=== PATIENT | male | born 1965 | race American Indian/Alaskan Native ===

== ENCOUNTER 2017-11-16 19:46 | Inpatient (IN) | payer MEDICAID, OTHER ==
[2017-11-16] MEDS ORDERED: Albuterol-Ipratrop 3 mg / 0.5 (3 ml) UD ONE (20:05)
[2017-11-16] MEDS ORDERED: Albuterol-Ipratrop 3 mg / 0.5 (3 ml) UD IH STA ×2 (20:09→21:08)
[2017-11-16 20:27] LABS: HEMOGLOBIN 14.4 g/dL (14.0-18.0); MEAN CELL VOLUME 99.1 fl (80.0-105.0); MEAN CORPUSCULAR HEMOGLOBIN 33.4 pg (25.0-35.0); MEAN CORPUSCULAR HGB CONC 33.7 g/dl (31.0-37.0); MEAN PLATELET VOLUME 10.6 fl (7.0-11.0); RBC 4.31 10^6/uL (3.5-6.1); RED CELL DISTRIBUTION WIDTH 11.9 % (11.5-14.5); WHITE BLOOD COUNT 5.8 10^3/ul (4.5-11.0)
[2017-11-16 20:28] LABS: ALB/GLOB RATIO 1.2 (1.1-1.8); ALBUMIN 4.3 g/dL (3.0-4.8); ALT/SGPT 46 U/L (7-56); AST/SGOT 48 U/L (17-59); BLOOD UREA NITROGEN 20 mg/dL (7-21); GFR AFRICAN-AMERICAN > 60; GFR NON-AFRICAN AMERICAN > 60
--- NOTE | 2017-11-16 20:35 | ED PDOC ---
Arrival/HPI - General Chief Complaint: Shortness Of Breath Time Seen by Provider: 11/16/17 19:49 Historian: Patient - History of Present Illness Narrative History of Present Illness (Text): 11/16/17 19:55 A 52 year old male, whose past medical history includes emphysema and neck tumor , is brought in by EMS for evaluation of shortness of breath for past couple of days. Patient received nebulizer of SOLU-Medrol prior to arrival. Patient states feeling better but still short of breath with wheezing. Patient notes also experiencing occassional minimally productive cough whitish sputum, but denies any fever, chills, chest pain, back pain, or any other complaints at this time. No PMD Past Medical History - Provider Review Nursing Documentation Reviewed: Yes - Infectious Disease Hx of Infectious Diseases: None Family/Social History - Physician Review Nursing Documentation Reviewed: Yes Family/Social History: No Known Family HX Allergies/Home Meds Allergies/Adverse Reactions: Allergies No Known Allergies Allergy (Verified 11/16/17 19:55) Home Medications: Home Meds Medication Instructions Recorded Confirmed Albuterol Sulfate [Ventolin Hfa] 1 - 2 puff IH PRN PRN 11/16/17 11/16/17 Albuterol/Ipratropium [Combivent 1 puff IH PRN PRN 11/16/17 11/16/17 Respimat] Review of Systems - Physician Review All systems were reviewed & negative as marked: Yes - Review of Systems Constitutional: absent: Fevers, Night Sweats Respiratory: SOB Cardiovascular: absent: Chest Pain Musculoskeletal: absent: Back Pain Physical Exam Vital Signs Reviewed: Yes Vital Signs Temp Pulse Resp BP Pulse Ox 11/16/17 23:00 94 H 18 127/72 99 11/16/17 21:47 98 H 15 113/68 98 11/16/17 19:55 22 100 11/16/17 19:50 98.1 F 111 H 21 163/100 H 100 Temperature: Afebrile Blood Pressure: Hypertensive Pulse: Regular Respiratory Rate: Normal Appearance: Positive for: Well-Appearing Pain Distress: None Mental Status: Positive for: Alert and Oriented X 3 - Systems Exam Pupils: Present: PERRL Extroacular Muscles: Present: EOMI Conjunctiva: Present: Normal Ears: Present: Normal Respiratory/Chest: Present: Respiratory Distress (mild), Wheezes (bilateral expiratory wheezing) Cardiovascular: Present: Regular Rate and Rhythm, Normal S1, S2. No: Murmurs Abdomen: No: Tenderness, Distention, Peritoneal Signs Upper Extremity: Present: Normal Inspection, Deformity (right upper arm in clivula region (chronic)). No: Cyanosis, Edema Lower Extremity: Present: Normal Inspection. No: Edema Neurological: Present: GCS=15, CN II-XII Intact, Speech Normal. No: Other (no focal deficits) Psychiatric: Present: Alert, Oriented x 3, Normal Insight, Normal Concentration Medical Decision Making ED Course and Treatment: 11/16/17 20:00 Impression: 52 year old male with shortness of breath. Plan: -- EKG -- Chest X-Ray -- Labs -- Duoneb Progress Notes: 11/16/17 21:30 Chest X-ray reviewed, shows hyperinflated lungs, chronic interstitial changes. 11/16/17 22:05 EKG: Ordered, reviewed, and independently interpreted the EKG. Rate : 108 BPM Rhythm :Sinus tachycardia. Interpretation : Non-specific ST/T wave changes. 11/16/17 22:29 Discussed case with medical assistant cardiology and hospitalist, who are aware and agree with admission to Telemetry under hospitalist's service. - Lab Interpretations Lab Results: 11/16/17 20:00 11/16/17 20:00 Lab Results 11/16/17 20:00: WBC 5.8, RBC 4.31, Hgb 14.4, Hct 42.7, MCV 99.1, MCH 33.4, MCHC 33.7, RDW 11.9, Plt Count 189, MPV 10.6 11/16/17 20:00: Sodium 142, Potassium 3.9, Chloride 97 L, Carbon Dioxide 34 H, Anion Gap 15, BUN 20, Creatinine 0.9, Est GFR ( Amer) > 60, Est GFR (Non- Af Amer) > 60, Random Glucose 123 H, Calcium 9.0, Total Bilirubin 0.8, AST 48, ALT 46, Alkaline Phosphatase 72, Lactate Dehydrogenase 561, Total Creatine Kinase 643 H, CK-MB (CK-2) 6.5 H, CK-MB (CK-2) % 1.0 L, Troponin I 0.04, NT-Pro- B Natriuret Pep 120, Total Protein 8.0, Albumin 4.3, Globulin 3.6, Albumin/ Globulin Ratio 1.2 11/16/17 20:00: PT 13.6 H, INR 1.19 H, APTT 29.4 - RAD Interpretation Radiology Orders: 11/16/17 20:10 CHEST PORTABLE [RAD] Stat Quill Layer: Radiologist - EKG Interpretation Interpreted by ED Physician: Yes Type: 12 lead EKG - Medication Orders Current Medication Orders: Albuterol/Ipratropium (Duoneb 3 Mg/0.5 Mg (3 Ml) Ud) 3 ml IH [id number] [facility] Last Admin: 11/17/17 05:17 Dose: 3 ml Albuterol/Ipratropium (Duoneb 3 Mg/0.5 Mg (3 Ml) Ud) 3 ml IH Q2H PRN PRN Reason: Shortness of Breath Enoxaparin Sodium (Lovenox) 40 mg SC DAILY [facility] PRN Reason: Protocol Sodium Chloride (Sodium Chloride 0.9%) 1,000 mls @ 100 mls/hr IV .Q10H [facility] Last Admin: 11/17/17 00:08 Dose: 100 mls/hr eMAR Start Stop Document 11/17/17 00:08 SUJATHA (Rec: 11/17/17 00:08 SUJATHA [id number]) Intravenous Solution Start Date 11/17/17 Start Time 00:08 Ceftriaxone Sodium (Rocephin 1 Gram Ivpb) 1 gm in 100 mls @ 100 mls/hr IVPB DAILY [facility] PRN Reason: Protocol Azithromycin (Zithromax 500mg In Ns) 500 mg in 250 mls @ 167 mls/hr IVPB 0600 [facility] Methylprednisolone (Solu-Medrol) 30 mg IVP Q12 [facility] Last Admin: 11/17/17 00:00 Dose: Pantoprazole Sodium (Protonix Ec Tab) 40 mg PO 0600 [facility] Discontinued Medications Albuterol/Ipratropium (Duoneb 3 Mg/0.5 Mg (3 Ml) Ud) 3 ml IH ONCE STA Stop: 11/16/17 20:10 Last Admin: 11/16/17 20:10 Dose: 3 ml Albuterol/Ipratropium (Duoneb 3 Mg/0.5 Mg (3 Ml) Ud) 3 ml IH ONCE STA Stop: 11/16/17 21:09 - Scribe Statement The provider has reviewed the documentation as recorded by the Bryan Dalal Provider Dayneibe Attestation: All medical record entries made by the Bryan were at my direction and personally dictated by me. I have reviewed the chart and agree that the record accurately reflects my personal performance of the history, physical exam, medical decision making, and the department course for this patient. I have also personally directed, reviewed, and agree with the discharge instructions and disposition. Disposition/Present on Arrival - Present on Arrival Any Indicators Present on Arrival: No History of DVT/PE: No History of Uncontrolled Diabetes: No Urinary Catheter: No History of Decub. Ulcer: No History Surgical Site Infection Following: None - Disposition Have Diagnosis and Disposition been Completed?: Yes Diagnosis: COPD exacerbation Disposition: HOSPITALIZED Disposition Time: 22:26 Patient Problems: Current Active Problems Problem Status Onset COPD exacerbation Acute Condition: STABLE
[2017-11-16 20:40] LABS: B-TYPE NATRIURETIC PEPTIDE 120 pg/mL (0-450); TROPONIN I 0.04 ng/mL
[2017-11-16 20:56] LABS: CK-MB 6.5 ng/mL (0.0-3.6)
[2017-11-16 21:05] LABS: INR 1.19 (0.93-1.08); PROTHROMBIN TIME 13.6 SECONDS (9.4-12.5)
[2017-11-16 21:06] LABS: PARTIAL THROMBOPLASTIN TIME 29.4 Seconds (25.1-36.5)
[2017-11-16] MEDS ORDERED: Albuterol-Ipratrop 3 mg / 0.5 (3 ml) UD IH PRN (23:11)
[2017-11-17] MEDS: Sodium Chloride 0.9% 1,000 ML IV SCH ×2 (00:08→12:38)
[2017-11-17 04:36] LABS: GRAN # 4.67 (1.4-6.5); HEMOGLOBIN 13.3 g/dL (14.0-18.0); LYMPH # 0.3 (1.2-3.4); LYMPH % 5.2 % (22.0-35.0); MEAN CELL VOLUME 99.5 fl (80.0-105.0); MEAN CORPUSCULAR HEMOGLOBIN 32.1 pg (25.0-35.0); MEAN CORPUSCULAR HGB CONC 32.3 g/dl (31.0-37.0); MEAN PLATELET VOLUME 10.7 fl (7.0-11.0); MONO % 0.8 % (1.0-6.0); PLATELET COUNT 168 10^3/uL (120.0-450.0); RBC 4.14 10^6/uL (3.5-6.1)
--- NOTE | 2017-11-17 04:36 | CP.PCM.HP ---
<Maxx Chavira - Last Filed: 11/17/17 04:27> History of Present Illness - History of Present Illness History of Present Illness: Medicine H&P: Dr. Patricio Chief Complaint: Shortness of Breath HPI 52 year old black male with past medical history of emphysema and neck tumor presents with shortness of breath that is progressively getting worse for a week. Patient states that he felt cold-like symptoms with productive cough ( white sputum) before the onset of this shortness of breath. Patient has had several exacerbations like this in the past. Review of Systems: 12 point ROS obtained and negative except as per HPI Surgical History: Patient has a skin graft on R upper extremity Medical History: Emphysema, Neck Tumor Allergies: NKDA Social History: 1/2 pack per day smoker; Social alcohol; Denies illicits. Works two jobs, with two kids Home Meds: Reviewed, as per MAR Family History: Non-contributory PMD: None Present on Admission - Present on Admission Any Indicators Present on Admission: No Past Patient History - Infectious Disease Hx of Infectious Diseases: None - Past Social History Smoking Status: Heavy Smoker > 10 Cigarettes Daily - CARDIAC Hx Cardiac Disorders: No - PULMONARY Hx Respiratory Disorders: Yes Hx Asthma: Yes Hx Emphysema: Yes - NEUROLOGICAL Hx Neurological Disorder: No - HEENT Hx HEENT Problems: No - RENAL Hx Chronic Kidney Disease: No - ENDOCRINE/METABOLIC Hx Endocrine Disorders: No - HEMATOLOGICAL/ONCOLOGICAL Hx Blood Disorders: Yes Hx Cancer: Yes Other/Comment: tumor removed rt neck no chemo/radiation - INTEGUMENTARY Hx Dermatological Problems: No - MUSCULOSKELETAL/RHEUMATOLOGICAL Hx Musculoskeletal Disorders: No - GASTROINTESTINAL Hx Gastrointestinal Disorders: No - GENITOURINARY/GYNECOLOGICAL Hx Genitourinary Disorders: No - PSYCHIATRIC Hx Psychophysiologic Disorder: No Hx Substance Use: No - SURGICAL HISTORY Hx Surgeries: Yes Other/Comment: tumor removed rt neck - ANESTHESIA Hx Anesthesia: Yes Hx Anesthesia Reactions: No Meds Allergies/Adverse Reactions: Allergies Allergy/AdvReac Type Severity Reaction Status Date / Time No Known Allergies Allergy Verified 11/16/17 19:55 Physical Exam - Constitutional Appears: Well - Head Exam Head Exam: ATRAUMATIC, NORMAL INSPECTION, NORMOCEPHALIC - Eye Exam Eye Exam: EOMI, Normal appearance, PERRL Pupil Exam: NORMAL ACCOMODATION, PERRL - ENT Exam ENT Exam: Mucous Membranes Moist, Normal Exam - Neck Exam Neck exam: Positive for: Normal Inspection - Respiratory Exam Respiratory Exam: Wheezes, NORMAL BREATHING PATTERN - Cardiovascular Exam Cardiovascular Exam: REGULAR RHYTHM - GI/Abdominal Exam GI & Abdominal Exam: Normal Bowel Sounds, Soft. 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 - Extremities Exam Extremities exam: Negative for: normal inspection (Right upper extremity has large flapping skin graft) - Back Exam Back exam: NORMAL INSPECTION - Neurological Exam Neurological exam: Alert, CN II-XII Intact, Normal Gait, Oriented x3, Reflexes Normal - Psychiatric Exam Psychiatric exam: Normal Affect, Normal Mood - Skin Skin Exam: Dry, Intact, Normal Color, Warm - Additional Findings Additional findings: Patient has what appear to be neurofibromas and cafe au lait spots on his torso and extremities Results - Vital Signs Recent Vital Signs: Last Vital Signs Temp 98.1 F 11/16/17 19:50 Pulse 94 H 11/16/17 23:00 Resp 18 11/16/17 23:00 BP 127/72 11/16/17 23:00 Pulse Ox 99 11/16/17 23:00 - Labs Result Diagrams: 11/16/17 20:00 11/16/17 20:00 Labs: Laboratory Results - last 24 hr 11/16/17 11/16/17 11/17/17 23:15 23:15 01:00 D-Dimer, Quantitative < 200 Phosphorus 5.7 H Magnesium 2.0 Troponin I Triglycerides 68 Cholesterol 206 H LDL Cholesterol Direct 127 HDL Cholesterol 48 TSH 3rd Generation 1.69 11/17/17 02:15 D-Dimer, Quantitative Phosphorus Magnesium Troponin I 0.03 D Triglycerides Cholesterol LDL Cholesterol Direct HDL Cholesterol TSH 3rd Generation Assessment & Plan - Assessment and Plan (Free Text) Assessment: 52 year old male with pertinent medical history of emphysema presents with COPD exacerbation. Laboratory results revealed no white count, but patient was tachycardic and tachypneic on admission; no infiltrates on chest XR. D-dimer negative. At this time, suspicion for infection and PE low. Patient also found to have indeterminate troponin with elevated CK-MB and EKG with ST/T changes, but denies chest pain. Physical exam reveals several lesions that appear to be neurofibromas and cafe au-lait spots. Plan: Indeterminate Troponin Elevation - Admit to telemetry - Serial troponins, EKG; TSH, A1C, Lipid Panel - Heart Healthy Diet Shortness of Breath, likely 2/2 COPD Exacerbation - Rapid Flu, Blood cultures, Sputum cultures - Duonebs [facility] and PRN; Solumederol; O2 NC PRN - Empiric antibiotic treatment with Rocephin and Azithro - NS @ 100 mls/hr Possible Neurofibromatosis - Follow up with neurology outpatient GI/DVT Prophylaxis - Lovenox, Protonix <Martinez Patricio MD - Last Filed: 11/18/17 13:34> Results - Vital Signs Recent Vital Signs: Last Vital Signs Temp 98.5 F 11/18/17 12:00 Pulse 81 11/18/17 12:00 Resp 20 11/18/17 12:00 BP 180/97 H 11/18/17 12:00 Pulse Ox 100 11/18/17 06:00 - Labs Result Diagrams: 11/18/17 07:00 11/18/17 07:00 Labs: Laboratory Results - last 24 hr 11/17/17 11/17/17 11/18/17 13:55 13:55 07:00 WBC 8.2 D RBC 4.06 Hgb 13.1 L Hct 39.9 L MCV 98.3 MCH 32.3 MCHC 32.8 RDW 11.9 Plt Count 178 MPV 10.8 Gran % 81.7 H Lymph % (Auto) 12.0 L [place] % (Auto) 6.1 H Eos % (Auto) 0.2 L Baso % (Auto) 0.0 Gran # 6.67 H Lymph # (Auto) 1.0 L [place] # (Auto) 0.5 Eos # (Auto) 0.0 Baso # (Auto) 0.00 Sodium Potassium Chloride Carbon Dioxide Anion Gap BUN Creatinine Est GFR ( Amer) Est GFR (Non-Af Amer) Random Glucose Calcium Phosphorus 3.0 Magnesium 2.0 Total Bilirubin AST ALT Alkaline Phosphatase Troponin I 0.03 D Total Protein Albumin Globulin Albumin/Globulin Ratio 11/18/17 07:00 WBC RBC Hgb Hct MCV MCH MCHC RDW Plt Count MPV Gran % Lymph % (Auto) [place] % (Auto) Eos % (Auto) Baso % (Auto) Gran # Lymph # (Auto) [place] # (Auto) Eos # (Auto) Baso # (Auto) Sodium 141 Potassium 4.3 Chloride 102 Carbon Dioxide 30 Anion Gap 13 BUN 18 Creatinine 0.9 Est GFR ( Amer) > 60 Est GFR (Non-Af Amer) > 60 Random Glucose 94 Calcium 8.8 Phosphorus Magnesium Total Bilirubin 1.0 AST 29 ALT 36 Alkaline Phosphatase 58 Troponin I Total Protein 6.6 Albumin 3.5 Globulin 3.1 Albumin/Globulin Ratio 1.1 Attending/Attestation - Attestation I have personally seen and examined this patient.: Yes I have fully participated in the care of the patient.: Yes I have reviewed all pertinent clinical information: Yes Notes (Text): -I agree with the above H&P completed by the resident physician.
[2017-11-17 04:50] LABS: ALB/GLOB RATIO 1.2 (1.1-1.8); ALBUMIN 4.1 g/dL (3.0-4.8); ALT/SGPT 37 U/L (7-56); AST/SGOT 40 U/L (17-59); BLOOD UREA NITROGEN 21 mg/dL (7-21); CALCIUM 9.1 mg/dL (8.4-10.5); GFR AFRICAN-AMERICAN > 60; GFR NON-AFRICAN AMERICAN > 60
[2017-11-17] MEDS: Albuterol-Ipratrop 3 mg / 0.5 (3 ml) UD IH SCH ×6 (05:00→19:42)
[2017-11-17 06:00] VITALS: RESP 20
[2017-11-17] MEDS: Azithromycin 500MG/NS 250ml 500 MG/250 ML BAG IVPB SCH (06:28)
[2017-11-17] MEDS: Pantoprazole 40 mg EC Tab PO SCH (06:28)
[2017-11-17 08:23] LABS: LYMPHOCYTE 9 % (22.0-35.0); MONOCYTE 1 % (1.0-6.0); NEUTROPHIL 90 % (50.0-70.0); PLATELET ESTIMATE NORMAL (NORMAL)
--- NOTE | 2017-11-17 08:25 | RAD ---
HISTORY: sob COMPARISON: No prior. FINDINGS: LUNGS: No active pulmonary disease. PLEURA: No significant pleural effusion identified, no pneumothorax apparent. CARDIOVASCULAR: Normal. OSSEOUS STRUCTURES: Chronic rib deformities are seen in the right apex. Surgical clips are also seen in this area. VISUALIZED UPPER ABDOMEN: Normal. OTHER FINDINGS: None. IMPRESSION: No active disease.
[2017-11-17] MEDS: MethylPREDNISolone 40 mg Vial IVP SCH ×3 (09:30→22:47)
[2017-11-17] MEDS: Enoxaparin 40 mg Syringe SC SCH (09:31)
[2017-11-17] MEDS: cefTRIAXone 1 gm 1 GM/100 ML BAG IVPB SCH (09:31)
--- NOTE | 2017-11-17 15:20 | CARD ---
APPROVED REPORT EKG Measurement Heart [id number] IA 116P [id number] <Conclusion> Arm lead reversal Sinus tachycardia with fusion complexes Voltage criteria for left ventricular hypertrophy Abnormal ECG
[2017-11-18] MEDS: Albuterol-Ipratrop 3 mg / 0.5 (3 ml) UD IH SCH ×6 (02:11→19:45)
[2017-11-18] MEDS: Azithromycin 500MG/NS 250ml 500 MG/250 ML BAG IVPB SCH (06:47)
[2017-11-18] MEDS: Pantoprazole 40 mg EC Tab PO SCH (07:07)
[2017-11-18 07:35] LABS: EOS % 0.2 % (1.5-5.0); GRAN # 6.67 (1.4-6.5); GRAN % 81.7 % (50.0-68.0); HEMOGLOBIN 13.1 g/dL (14.0-18.0); MEAN CELL VOLUME 98.3 fl (80.0-105.0); MEAN CORPUSCULAR HEMOGLOBIN 32.3 pg (25.0-35.0); MEAN CORPUSCULAR HGB CONC 32.8 g/dl (31.0-37.0); MEAN PLATELET VOLUME 10.8 fl (7.0-11.0); MONO # 0.5 (0.1-0.6); MONO % 6.1 % (1.0-6.0); RBC 4.06 10^6/uL (3.5-6.1); RED CELL DISTRIBUTION WIDTH 11.9 % (11.5-14.5); WHITE BLOOD COUNT 8.2 10^3/ul (4.5-11.0)
[2017-11-18 07:54] LABS: ALB/GLOB RATIO 1.1 (1.1-1.8); ALBUMIN 3.5 g/dL (3.0-4.8); ALT/SGPT 36 U/L (7-56); AST/SGOT 29 U/L (17-59); BLOOD UREA NITROGEN 18 mg/dL (7-21); CALCIUM 8.8 mg/dL (8.4-10.5); GFR AFRICAN-AMERICAN > 60; GFR NON-AFRICAN AMERICAN > 60
--- NOTE | 2017-11-18 08:27 | CP.PCM.PN ---
<Oliver De Jesus - Last Filed: 11/18/17 12:09> Subjective - Date & Time of Evaluation Date of Evaluation: 11/18/17 Time of Evaluation: 07:45 - Subjective Subjective: Medicine Progress Note for Dr. Jay Patient seen and examined at bedside. No acute event overnight. Patient states breathing has improved but still wheezing. Admits to an episode of vomiting after coughing this morning. He is tolerated diet and having BMs. Denies fever/ chills, cp, SOB, abdominal pain. Objective - Vital Signs/Intake and Output Vital Signs (last 24 hours): Temp Pulse Resp BP Pulse Ox 98.4 F 81 20 132/66 97 11/18/17 00:00 11/18/17 00:00 11/18/17 00:00 11/18/17 00:00 11/18/17 00:00 Intake and Output: 11/18/17 11/18/17 06:59 18:59 Intake Total 240 Output Total 800 Balance -560 - Medications Medications: Current Medications Albuterol/Ipratropium (Duoneb 3 Mg/0.5 Mg (3 Ml) Ud) 3 ml IH [id number] [facility] Last Admin: 11/18/17 07:44 Dose: 3 ml Albuterol/Ipratropium (Duoneb 3 Mg/0.5 Mg (3 Ml) Ud) 3 ml IH Q2H PRN PRN Reason: Shortness of Breath Enoxaparin Sodium (Lovenox) 40 mg SC DAILY [facility] PRN Reason: Protocol Last Admin: 11/17/17 09:31 Dose: 40 mg Sodium Chloride (Sodium Chloride 0.9%) 1,000 mls @ 100 mls/hr IV .Q10H [facility] Last Admin: 11/17/17 12:38 Dose: 100 mls/hr Ceftriaxone Sodium (Rocephin 1 Gram Ivpb) 1 gm in 100 mls @ 100 mls/hr IVPB DAILY [facility] PRN Reason: Protocol Last Admin: 11/17/17 09:31 Dose: 100 mls/hr Azithromycin (Zithromax 500mg In Ns) 500 mg in 250 mls @ 167 mls/hr IVPB 0600 [facility] Last Admin: 11/18/17 06:47 Dose: 167 mls/hr Loratadine (Claritin) 10 mg PO DAILY [facility] Last Admin: 11/17/17 12:35 Dose: 10 mg Methylprednisolone (Solu-Medrol) 30 mg IVP Q12 [facility] Last Admin: 11/17/17 22:47 Dose: 30 mg Pantoprazole Sodium (Protonix Ec Tab) 40 mg PO 0600 [facility] Last Admin: 11/18/17 07:07 Dose: 40 mg - Labs Labs: 11/18/17 07:00 11/18/17 07:00 PT 13.6 SECONDS (9.4-12.5) H 11/16/17 20:00 INR 1.19 (0.93-1.08) H 11/16/17 20:00 APTT 29.4 Seconds (25.1-36.5) 11/16/17 20:00 - Constitutional Appears: No Acute Distress - Head Exam Head Exam: ATRAUMATIC, NORMOCEPHALIC - Eye Exam Eye Exam: Normal appearance - ENT Exam ENT Exam: Mucous Membranes Moist - Respiratory Exam Respiratory Exam: Wheezes, NORMAL BREATHING PATTERN - Cardiovascular Exam Cardiovascular Exam: REGULAR RHYTHM, +S1, +S2 - GI/Abdominal Exam GI & Abdominal Exam: Soft, Normal Bowel Sounds. absent: Tenderness Additional comments: suspected neurofibromas on abdomen - Extremities Exam Extremities Exam: Normal Capillary Refill Additional comments: Right upper extremity has large flapping skin graft - Neurological Exam Neurological Exam: Alert, Awake, Oriented x3 - Psychiatric Exam Psychiatric exam: Normal Affect, Normal Mood - Skin Skin Exam: Dry, Intact, Warm Additional comments: suspected neurofibromas and cafe au lait spots on his torso and extremities Assessment and Plan - Assessment and Plan (Free Text) Assessment: 52 year old male with PMH of emphysema presents with COPD exacerbation 1.COPD Exacerbation -f/u Blood cultures, Sputum cultures -Duonebs [facility] and PRN -Solumederol -Empiric antibiotic treatment with Rocephin and Azithromycin -NS @ 100 mls/hr 2.Possible Neurofibromatosis -Follow up with neurology outpatient 3. GI/DVT Prophylaxis -Lovenox -Protonix Discussed with Dr Pierre De Jesus PGY1 <Alison Jay - Last Filed: 11/19/17 12:19> Objective - Vital Signs/Intake and Output Vital Signs (last 24 hours): Temp Pulse Resp BP Pulse Ox 98 F 90 20 169/100 H 97 11/19/17 08:29 11/19/17 10:15 05/08/18 08:29 11/19/17 10:15 11/19/17 08:29 Intake and Output: 11/19/17 11/19/17 06:59 18:59 Intake Total 540 Balance 540 - Medications Medications: Current Medications Albuterol/Ipratropium (Duoneb 3 Mg/0.5 Mg (3 Ml) Ud) 3 ml IH [id number] [facility] Last Admin: 11/19/17 11:03 Dose: 3 ml Albuterol/Ipratropium (Duoneb 3 Mg/0.5 Mg (3 Ml) Ud) 3 ml IH Q2H PRN PRN Reason: Shortness of Breath Azithromycin (Zithromax) 500 mg PO 0600 [facility] Last Admin: 11/19/17 05:52 Dose: 500 mg Enoxaparin Sodium (Lovenox) 40 mg SC DAILY [facility] PRN Reason: Protocol Last Admin: 11/19/17 10:23 Dose: Not Given Hydralazine HCl (Apresoline) 10 mg IVP Q6 PRN PRN Reason: Systolic Blood Pressure Last Admin: 11/18/17 14:33 Dose: 10 mg Ceftriaxone Sodium (Rocephin 1 Gram Ivpb) 1 gm in 100 mls @ 100 mls/hr IVPB DAILY [facility] PRN Reason: Protocol Last Admin: 11/19/17 10:16 Dose: 100 mls/hr Lisinopril (Zestril) 10 mg PO DAILY [facility] Last Admin: 11/19/17 10:15 Dose: 10 mg Loratadine (Claritin) 10 mg PO DAILY [facility] Last Admin: 11/19/17 10:15 Dose: 10 mg Methylprednisolone (Solu-Medrol) 20 mg IVP Q12 [facility] Last Admin: 11/19/17 10:16 Dose: 20 mg Ondansetron HCl (Zofran Inj) 4 mg IVP Q6H PRN PRN Reason: Nausea/Vomiting Last Admin: 11/18/17 21:45 Dose: 4 mg Pantoprazole Sodium (Protonix Ec Tab) 40 mg PO 0600 [facility] Last Admin: 11/19/17 05:52 Dose: 40 mg - Labs Labs: 11/19/17 07:00 11/19/17 07:00 PT 13.6 SECONDS (9.4-12.5) H 11/16/17 20:00 INR 1.19 (0.93-1.08) H 11/16/17 20:00 APTT 29.4 Seconds (25.1-36.5) 11/16/17 20:00 Attending/Attestation - Attestation I have personally seen and examined this patient.: Yes I have fully participated in the care of the patient.: Yes I have reviewed all pertinent clinical information, including history, physical exam and plan: Yes Notes (Text): I have seen and examined the patient at bedside. Agree with the above note. Continue management of COPD exacerbation. Patient also had post tussive vomiting. Will start zofran. Tobacco cessation counselling provided.
[2017-11-18] MEDS: MethylPREDNISolone 40 mg Vial IVP SCH ×2 (10:38→21:45)
[2017-11-18] MEDS: cefTRIAXone 1 gm 1 GM/100 ML BAG IVPB SCH (10:38)
[2017-11-18] MEDS: Sodium Chloride 0.9% 1,000 ML IV SCH (10:39)
[2017-11-18] MEDS: Enoxaparin 40 mg Syringe SC SCH (10:39)
[2017-11-18] MEDS: Dextrose 5%/0.45% NS 1,000 ML IV SCH (14:33)
[2017-11-19] MEDS: Albuterol-Ipratrop 3 mg / 0.5 (3 ml) UD IH SCH ×4 (01:26→11:03)
[2017-11-19] MEDS: Dextrose 5%/0.45% NS 1,000 ML IV SCH (02:29)
[2017-11-19 04:32] VITALS: O2SAT 97
[2017-11-19] MEDS: Pantoprazole 40 mg EC Tab PO SCH (05:52)
--- NOTE | 2017-11-19 07:12 | CP.PCM.PN ---
Objective - Vital Signs/Intake and Output Vital Signs (last 24 hours): Temp Pulse Resp BP Pulse Ox 99.3 F 102 H 20 158/89 H 97 11/18/17 22:00 11/18/17 22:25 11/18/17 22:00 11/18/17 22:25 11/18/17 22:00 Intake and Output: 11/19/17 11/19/17 06:59 18:59 Intake Total 540 Balance 540 - Medications Medications: Current Medications Albuterol/Ipratropium (Duoneb 3 Mg/0.5 Mg (3 Ml) Ud) 3 ml IH [id number] [facility] Last Admin: 11/19/17 04:31 Dose: Not Given Albuterol/Ipratropium (Duoneb 3 Mg/0.5 Mg (3 Ml) Ud) 3 ml IH Q2H PRN PRN Reason: Shortness of Breath Azithromycin (Zithromax) 500 mg PO 0600 [facility] Last Admin: 11/19/17 05:52 Dose: 500 mg Enoxaparin Sodium (Lovenox) 40 mg SC DAILY [facility] PRN Reason: Protocol Last Admin: 11/18/17 10:39 Dose: 40 mg Hydralazine HCl (Apresoline) 10 mg IVP Q6 PRN PRN Reason: Systolic Blood Pressure Last Admin: 11/18/17 14:33 Dose: 10 mg Ceftriaxone Sodium (Rocephin 1 Gram Ivpb) 1 gm in 100 mls @ 100 mls/hr IVPB DAILY [facility] PRN Reason: Protocol Last Admin: 11/18/17 10:38 Dose: 100 mls/hr Dextrose/Sodium Chloride (Dextrose 5%/0.45% Ns 1000 Ml) 1,000 mls @ 100 mls/hr IV .Q10H [facility] Last Admin: 11/19/17 02:29 Dose: 100 mls/hr Loratadine (Claritin) 10 mg PO DAILY [facility] Last Admin: 11/18/17 10:49 Dose: Not Given Methylprednisolone (Solu-Medrol) 30 mg IVP Q12 [facility] Last Admin: 11/18/17 21:45 Dose: 30 mg Ondansetron HCl (Zofran Inj) 4 mg IVP Q6H PRN PRN Reason: Nausea/Vomiting Last Admin: 11/18/17 21:45 Dose: 4 mg Pantoprazole Sodium (Protonix Ec Tab) 40 mg PO 0600 [facility] Last Admin: 11/19/17 05:52 Dose: 40 mg - Labs Labs: PT 13.6 SECONDS (9.4-12.5) H 11/16/17 20:00 INR 1.19 (0.93-1.08) H 11/16/17 20:00 APTT 29.4 Seconds (25.1-36.5) 11/16/17 20:00
[2017-11-19 07:30] LABS: GRAN # 5.83 (1.4-6.5); GRAN % 73.6 % (50.0-68.0); HEMOGLOBIN 14.1 g/dL (14.0-18.0); LYMPH # 1.3 (1.2-3.4); LYMPH % 16.7 % (22.0-35.0); MEAN CELL VOLUME 96.3 fl (80.0-105.0); MEAN CORPUSCULAR HEMOGLOBIN 32.6 pg (25.0-35.0); MEAN CORPUSCULAR HGB CONC 33.9 g/dl (31.0-37.0); MEAN PLATELET VOLUME 10.4 fl (7.0-11.0); MONO # 0.8 (0.1-0.6); MONO % 9.7 % (1.0-6.0); RBC 4.32 10^6/uL (3.5-6.1); WHITE BLOOD COUNT 7.9 10^3/ul (4.5-11.0)
[2017-11-19 07:48] LABS: ALB/GLOB RATIO 1.1 (1.1-1.8); ALBUMIN 3.8 g/dL (3.0-4.8); ALT/SGPT 37 U/L (7-56); AST/SGOT 28 U/L (17-59); BLOOD UREA NITROGEN 16 mg/dL (7-21); CALCIUM 9.2 mg/dL (8.4-10.5); GFR AFRICAN-AMERICAN > 60; GFR NON-AFRICAN AMERICAN > 60
[2017-11-19 08:30] VITALS: TEMP 98
[2017-11-19] MEDS ORDERED: MethylPREDNISolone 40 mg Vial IVP SCH (10:00)
[2017-11-19] MEDS: cefTRIAXone 1 gm 1 GM/100 ML BAG IVPB SCH (10:16)
[2017-11-19] MEDS: Enoxaparin 40 mg Syringe SC SCH ×2 (10:16→10:23)
[2017-11-19 10:17] VITALS: BP 169/100; PULSE 90
--- NOTE | 2017-11-19 10:24 | CP.PCM.DIS ---
<Matt De Jesusy - Last Filed: 11/19/17 11:00> Provider - Provider Date of Admission: 11/18/17 11:44 Attending physician: Alison Jay MD Time Spent in preparation of Discharge (in minutes): 40 Diagnosis - Discharge Diagnosis (1) COPD exacerbation Status: Acute Hospital Course - Lab Results Lab Results: Most Recent Lab Values WBC 7.9 10^3/ul (4.5-11.0) 11/19/17 07:00 RBC 4.32 10^6/uL (3.5-6.1) 11/19/17 07:00 Hgb 14.1 g/dL (14.0-18.0) 11/19/17 07:00 Hct 41.6 % (42.0-52.0) L 11/19/17 07:00 MCV 96.3 fl (80.0-105.0) 11/19/17 07:00 MCH 32.6 pg (25.0-35.0) 11/19/17 07:00 MCHC 33.9 g/dl (31.0-37.0) 11/19/17 07:00 RDW 12.0 % (11.5-14.5) 11/19/17 07:00 Plt Count 182 10^3/uL (120.0-450.0) 11/19/17 07:00 MPV 10.4 fl (7.0-11.0) 11/19/17 07:00 Gran % 73.6 % (50.0-68.0) H 11/19/17 07:00 Lymph % (Auto) 16.7 % (22.0-35.0) L 11/19/17 07:00 [place] % (Auto) 9.7 % (1.0-6.0) H 11/19/17 07:00 Eos % (Auto) 0.0 % (1.5-5.0) L 11/19/17 07:00 Baso % (Auto) 0.0 % (0.0-3.0) 11/19/17 07:00 Gran # 5.83 (1.4-6.5) 11/19/17 07:00 Lymph # (Auto) 1.3 (1.2-3.4) 11/19/17 07:00 [place] # (Auto) 0.8 (0.1-0.6) H 11/19/17 07:00 Eos # (Auto) 0.0 (0.0-0.7) 11/19/17 07:00 Baso # (Auto) 0.00 K/mm3 (0.0-2.0) 11/19/17 07:00 Neutrophils % (Manual) 90 % (50.0-70.0) H 11/17/17 04:00 Lymphocytes % (Manual) 9 % (22.0-35.0) L 11/17/17 04:00 Monocytes % (Manual) 1 % (1.0-6.0) 11/17/17 04:00 Platelet Evaluation Normal (NORMAL) 11/17/17 04:00 PT 13.6 SECONDS (9.4-12.5) H 11/16/17 20:00 INR 1.19 (0.93-1.08) H 11/16/17 20:00 APTT 29.4 Seconds (25.1-36.5) 11/16/17 20:00 D-Dimer, Quantitative < 200 ng/mL (0-243) 11/16/17 23:15 Sodium 138 mmol/L (132-148) 11/19/17 07:00 Potassium 4.0 mmol/L (3.6-5.0) 11/19/17 07:00 Chloride 99 mmol/L (98-107) 11/19/17 07:00 Carbon Dioxide 30 mmol/L (21-33) 11/19/17 07:00 Anion Gap 13 (10-20) 11/19/17 07:00 BUN 16 mg/dL (7-21) 11/19/17 07:00 Creatinine 0.9 mg/dl (0.8-1.5) 11/19/17 07:00 Est GFR ( Amer) > 60 11/19/17 07:00 Est GFR (Non-Af Amer) > 60 11/19/17 07:00 Random Glucose 102 mg/dL (70-110) 11/19/17 07:00 Hemoglobin A1c 5.2 % (4.2-6.5) 11/17/17 01:00 Calcium 9.2 mg/dL (8.4-10.5) 11/19/17 07:00 Phosphorus 4.4 mg/dL (2.5-4.5) 11/19/17 07:00 Magnesium 1.7 mg/dL (1.7-2.2) 11/19/17 07:00 Total Bilirubin 1.9 mg/dL (0.2-1.3) H 11/19/17 07:00 AST 28 U/L (17-59) 11/19/17 07:00 ALT 37 U/L (7-56) 11/19/17 07:00 Alkaline Phosphatase 56 U/L (38-126) 11/19/17 07:00 Lactate Dehydrogenase 561 U/L (333-699) 11/16/17 20:00 Total Creatine Kinase 643 U/L (35-230) H 11/16/17 20:00 CK-MB (CK-2) 6.5 ng/mL (0.0-3.6) H 11/16/17 20:00 CK-MB (CK-2) % 1.0 % (2.5-3.0) L 11/16/17 20:00 Troponin I 0.03 ng/mL D 11/17/17 13:55 NT-Pro-B Natriuret Pep 120 pg/mL (0-450) 11/16/17 20:00 Total Protein 7.1 g/dL (5.8-8.3) 11/19/17 07:00 Albumin 3.8 g/dL (3.0-4.8) 11/19/17 07:00 Globulin 3.3 gm/dL 11/19/17 07:00 Albumin/Globulin Ratio 1.1 (1.1-1.8) 11/19/17 07:00 Triglycerides 68 mg/dL (35-160) 11/16/17 23:15 Cholesterol 206 mg/dL (130-200) H 11/16/17 23:15 LDL Cholesterol Direct 127 mg/dL (0-129) 11/16/17 23:15 HDL Cholesterol 48 mg/dL (29-60) 11/16/17 23:15 TSH 3rd Generation 1.69 mIU/mL (0.46-4.68) 11/17/17 01:00 - Hospital Course Hospital Course: 52 year old male with past medical history of emphysema and neck tumor presents with shortness of breath that is progressively getting worse for a week. Patient states that he felt cold-like symptoms with productive cough (white sputum) before the onset of this shortness of breath. Patient has had several exacerbations like this in the past. Denies fever/chills, chest pain, abdominal pain, nausea/vomiting, diarrhea. Patient was admitted for COPD exacerbation. He was started on Rocephin and Azithromycin. He was ordered solumedrol every 12 hours. He was also started on iv fluids. Over the next two days, patient's wheezing improved. Patient did develop two episodes of nausea/vomiting but resolved on its own after zofran. Patient's BP elevated intermittently durin admission. On 11/19, patient was deemed medically stable for discharge by Dr. Jay. He was given prescription for Lisiniopril, Medrol dose pack and Doxycyline for 5 days. Patient was instructed to follow up with [facility] within 1 week in order to get PFTs and follow up BP. Patient also instructed to stop smoking. (This is a summary of the hospital course. Please refer to EMR for more details. ) - Date & Time of H&P Date of H&P: 11/17/17 Time of H&P: 04:45 Discharge Exam - Head Exam Head Exam: ATRAUMATIC, NORMOCEPHALIC - Eye Exam Eye Exam: EOMI, PERRL - ENT Exam ENT Exam: Mucous Membranes Moist - Respiratory Exam Respiratory Exam: Clear to PA & Lateral, NORMAL BREATHING PATTERN - Cardiovascular Exam Cardiovascular Exam: REGULAR RHYTHM, +S1, +S2 - GI/Abdominal Exam GI & Abdominal Exam: Normal Bowel Sounds, Soft. absent: Tenderness - Extremities Exam Extremities exam: normal capillary refill, pedal pulses present - Neurological Exam Neurological exam: Alert, CN II-XII Intact, Oriented x3 - Psychiatric Exam Psychiatric exam: Normal Affect, Normal Mood - Skin Skin Exam: Dry, Intact, Warm Discharge Plan - Discharge Medications Prescriptions: Doxycycline Hyclate 100 mg PO BID #10 capsule Lactobacillus Acidophilus [Acidophilus Lactobacillus] 1 cap PO BID #10 capsule Lisinopril [Prinivil] 10 mg PO DAILY #14 tablet Methylprednisolone [Medrol Dose Pack (21 tabs)] See Taper PO DAILY #21 mg - Follow Up Plan Condition: STABLE Disposition: HOME/ ROUTINE Additional Instructions: Take Medrol dose pack, Doycycline, Lisinopril and Probiotic as prescribed Make appointment and follow up with [facility] Upon follow up with [facility], they will refer you to [facility] Outpatient Pulmoary Function Testing needed Smoking cessation is advised Please return to ED if symptomspersist or condition worsens Referrals: [facility] at [facility] [Outside] <Alison Jay - Last Filed: 11/19/17 12:23> Provider - Provider Date of Admission: 11/18/17 11:44 Attending physician: Alison Jay MD Hospital Course - Lab Results Lab Results: Most Recent Lab Values WBC 7.9 10^3/ul (4.5-11.0) 11/19/17 07:00 RBC 4.32 10^6/uL (3.5-6.1) 11/19/17 07:00 Hgb 14.1 g/dL (14.0-18.0) 11/19/17 07:00 Hct 41.6 % (42.0-52.0) L 11/19/17 07:00 MCV 96.3 fl (80.0-105.0) 11/19/17 07:00 MCH 32.6 pg (25.0-35.0) 11/19/17 07:00 MCHC 33.9 g/dl (31.0-37.0) 11/19/17 07:00 RDW 12.0 % (11.5-14.5) 11/19/17 07:00 Plt Count 182 10^3/uL (120.0-450.0) 11/19/17 07:00 MPV 10.4 fl (7.0-11.0) 11/19/17 07:00 Gran % 73.6 % (50.0-68.0) H 11/19/17 07:00 Lymph % (Auto) 16.7 % (22.0-35.0) L 11/19/17 07:00 [place] % (Auto) 9.7 % (1.0-6.0) H 11/19/17 07:00 Eos % (Auto) 0.0 % (1.5-5.0) L 11/19/17 07:00 Baso % (Auto) 0.0 % (0.0-3.0) 11/19/17 07:00 Gran # 5.83 (1.4-6.5) 05/08/18 07:00 Lymph # (Auto) 1.3 (1.2-3.4) 11/19/17 07:00 [place] # (Auto) 0.8 (0.1-0.6) H 11/19/17 07:00 Eos # (Auto) 0.0 (0.0-0.7) 11/19/17 07:00 Baso # (Auto) 0.00 K/mm3 (0.0-2.0) 11/19/17 07:00 Neutrophils % (Manual) 90 % (50.0-70.0) H 11/17/17 04:00 Lymphocytes % (Manual) 9 % (22.0-35.0) L 11/17/17 04:00 Monocytes % (Manual) 1 % (1.0-6.0) 11/17/17 04:00 Platelet Evaluation Normal (NORMAL) 11/17/17 04:00 PT 13.6 SECONDS (9.4-12.5) H 11/16/17 20:00 INR 1.19 (0.93-1.08) H 11/16/17 20:00 APTT 29.4 Seconds (25.1-36.5) 11/16/17 20:00 D-Dimer, Quantitative < 200 ng/mL (0-243) 11/16/17 23:15 Sodium 138 mmol/L (132-148) 11/19/17 07:00 Potassium 4.0 mmol/L (3.6-5.0) 11/19/17 07:00 Chloride 99 mmol/L (98-107) 11/19/17 07:00 Carbon Dioxide 30 mmol/L (21-33) 11/19/17 07:00 Anion Gap 13 (10-20) 11/19/17 07:00 BUN 16 mg/dL (7-21) 11/19/17 07:00 Creatinine 0.9 mg/dl (0.8-1.5) 11/19/17 07:00 Est GFR ( Amer) > 60 11/19/17 07:00 Est GFR (Non-Af Amer) > 60 11/19/17 07:00 Random Glucose 102 mg/dL (70-110) 11/19/17 07:00 Hemoglobin A1c 5.2 % (4.2-6.5) 11/17/17 01:00 Calcium 9.2 mg/dL (8.4-10.5) 11/19/17 07:00 Phosphorus 4.4 mg/dL (2.5-4.5) 11/19/17 07:00 Magnesium 1.7 mg/dL (1.7-2.2) 11/19/17 07:00 Total Bilirubin 1.9 mg/dL (0.2-1.3) H 11/19/17 07:00 AST 28 U/L (17-59) 11/19/17 07:00 ALT 37 U/L (7-56) 11/19/17 07:00 Alkaline Phosphatase 56 U/L (38-126) 11/19/17 07:00 Lactate Dehydrogenase 561 U/L (333-699) 11/16/17 20:00 Total Creatine Kinase 643 U/L (35-230) H 11/16/17 20:00 CK-MB (CK-2) 6.5 ng/mL (0.0-3.6) H 11/16/17 20:00 CK-MB (CK-2) % 1.0 % (2.5-3.0) L 11/16/17 20:00 Troponin I 0.03 ng/mL D 11/17/17 13:55 NT-Pro-B Natriuret Pep 120 pg/mL (0-450) 11/16/17 20:00 Total Protein 7.1 g/dL (5.8-8.3) 11/19/17 07:00 Albumin 3.8 g/dL (3.0-4.8) 11/19/17 07:00 Globulin 3.3 gm/dL 11/19/17 07:00 Albumin/Globulin Ratio 1.1 (1.1-1.8) 11/19/17 07:00 Triglycerides 68 mg/dL (35-160) 11/16/17 23:15 Cholesterol 206 mg/dL (130-200) H 11/16/17 23:15 LDL Cholesterol Direct 127 mg/dL (0-129) 11/16/17 23:15 HDL Cholesterol 48 mg/dL (29-60) 11/16/17 23:15 TSH 3rd Generation 1.69 mIU/mL (0.46-4.68) 11/17/17 01:00 Attending/Attestation - Attestation I have personally seen and examined this patient.: Yes I have fully participated in the care of the patient.: Yes I have reviewed all pertinent clinical information, including history, physical exam and plan: Yes Notes (Text): I have seen and examined the patient at bedside. Agree with the above note. Patient feels better today. Will send patient home on albuterol, medrol dose pack, pepcid and doxycycline. Tobacco cessation couselling provided. Will start lisinopril 10 mg daily fo essential HTN. Low salt diet recommended. Tobacco cessation counselling provided. Advised patient to follow up with [facility] clinic in 3-5 days. Outpatient PFTs recommended.
== END 2017-11-19 14:54 | disposition home or self-care (01) | DRG 192 ==
LOC: ED 19:46 → ERH 22:25 → 2RSO 11-17 00:17 → OBSVTOIN 11-18 11:44 → 5RSO 11-18 15:13
PROVIDERS: ADMIT Hospitalist; ATTEND Hospitalist
DX: J44.1 Chronic obstructive pulmonary disease with (acute) exacerbation (principal); I10 Essential (primary) hypertension; L81.3 Cafe au lait spots; Q85.00 Neurofibromatosis, unspecified; F17.210 Nicotine dependence, cigarettes, uncomplicated